=== PATIENT | male | born 1985 | race Caucasian/White ===

== ENCOUNTER 2017-11-21 11:20 | Emergency (ER) | payer OTHER ==
[2017-11-21 13:41] VITALS: BP 116/78
[2017-11-21] MEDS ORDERED: IBUPROFEN 600 MG TABLET PO ONE (13:43)
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
== END 2017-11-21 16:04 | disposition home or self-care (01) ==
LOC: ER 11:20
DX: M54.5 Low back pain (principal); M54.2 Cervicalgia; S80.00XA Contusion of unspecified knee, initial encounter; M25.561 Pain in right knee; V49.50XA Passenger injured in collision with unspecified motor vehicles in traffic accident, initial encounter; F17.210 Nicotine dependence, cigarettes, uncomplicated
CPT/HCPCS: 99284; 72050; 73562; 72110; L0120

== ENCOUNTER 2017-11-27 06:45 | Emergency (ER) | payer OTHER ==
[2017-11-27] MEDS ORDERED: KETOROLAC TROMETHAMINE 60 MG/2 ML SDV IM ONE (07:58)
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
[2017-11-27 09:40] VITALS: BP 114/83
== END 2017-11-27 09:40 | disposition home or self-care (01) ==
LOC: ER 06:45
DX: M54.5 Low back pain (principal); M54.9 Dorsalgia, unspecified; M54.2 Cervicalgia; V87.7XXS Person injured in collision between other specified motor vehicles (traffic), sequela; F17.210 Nicotine dependence, cigarettes, uncomplicated
CPT/HCPCS: 99283; 96372; 72131; J1885